=== PATIENT | female | born 1955 | race Hispanic/Latino ===

== ENCOUNTER 2017-07-06 09:48 | Outpatient (CLI) | payer MEDICAID ==
--- NOTE | 2017-07-06 10:36 | Mammography Report ---
BILATERAL DIGITAL DIAGNOSTIC MAMMOGRAM WITH CAD : 07/06/17 09:48:00 CLINICAL: Breast cancer survivor status post right partial mastectomy and status post benign right stereotactic biopsy 03/28/15. COMPARISON:07/03/16 FINDINGS: The breasts are heterogeneously dense, which may obscure small masses. Stable right postsurgical scar with surgical clips and benign calcifications. Right upper outer biopsy clip. No mass, architectural distortion or suspicious calcifications. The left breast is negative. IMPRESSION: No mammographic evidence of malignancy. BI-RADS CATEGORY: 2 -- Benign RECOMMENDATION: Routine mammographic screening in one year. COMMENT: Patient follow-up letters are generated via our [employer] application.
== END 2017-07-06 09:49 | disposition home or self-care (01) ==
LOC: SPVWC 09:48
PROVIDERS: ATTEND Family Medicine
DX: R92.8 Other abnormal and inconclusive findings on diagnostic imaging of breast (principal); Z90.11 Acquired absence of right breast and nipple
CPT/HCPCS: 77066

== ENCOUNTER 2018-07-07 09:49 | Outpatient (CLI) | payer MEDICAID ==
--- NOTE | 2018-07-07 13:04 | Mammography Report ---
BILATERAL DIGITAL SCREENING MAMMOGRAM WITH CAD: 07/07/18 09:49:00 CLINICAL: Routine screening.Breast cancer survivor status post right partial mastectomy and status post right benign stereotactic breast biopsy 03/28/15. COMPARISON:07/06/17 FINDINGS: The breasts are heterogeneously dense, which may obscure small masses. Stable right inner posterior postsurgical scar with calcifications and surgical clips. Scattered bilateral benign calcifications. No mass, suspicious architectural distortion or suspicious calcifications. IMPRESSION: No mammographic evidence of malignancy. BI-RADS CATEGORY: 2 -- Benign RECOMMENDATION: Routine mammographic screening in one year. COMMENT: Patient follow-up letters are generated via our [employer] application.
== END 2018-07-07 09:50 | disposition home or self-care (01) ==
LOC: SPVWC 09:49
PROVIDERS: ATTEND Family Medicine
DX: Z12.31 Encounter for screening mammogram for malignant neoplasm of breast (principal)
CPT/HCPCS: 77067

== ENCOUNTER 2019-07-13 08:56 | Outpatient (CLI) | payer MEDICAID ==
--- NOTE | 2019-07-13 11:04 | Mammography Report ---
DIGITAL SCREENING MAMMOGRAM WITH CAD, 07/13/2019 INDICATION: Routine screening mammography. Breast cancer survivor status post right partial mastectom y and status post right benign stereotactic biopsy. TECHNIQUE: Digital bilateral 2D mammography was obtained in the craniocaudal and mediolateral obliq ue projections. This examination was interpreted with the benefit of Computer-Aided Detection analysi s. COMPARISON: 07/07/2018 FINDINGS: Breast Density: The breasts are heterogeneously dense, which may obscure small masses. There is no evidence of dominant mass, suspicious calcifications or architectural distortion in eithe r breast. Bilateral benign calcifications. Large benign calcifications and surgical clips at the right inner posterior postsurgical scar. IMPRESSION: No mammographic evidence of malignancy. Follow up recommendation: Routine yearly BI-RADS Category 2: Benign. A "normal" or negative report should not discourage follow up or biopsy of a clinically significant f inding. A written summary of these findings will be mailed to the patient. The patient will be entered into a mammography reporting system which will generate a reminder letter for the patient's next appointmen t at the appropriate interval. The [employer] recommends yearly mammograms starting at age 40 and continuing as l dennis as a woman is in good health. Breast MRI is recommended for women with an approximate 20-25% or greater lifetime risk of breast cancer, including women with a strong family history of breast or ova julissa cancer or who have been treated for Hodgkin's disease. Signer Name: Trevor Arnold MD Signed: 07/13/2019 10:59 AM Workstation Name: [id number]
== END 2019-07-13 08:57 | disposition home or self-care (01) ==
LOC: SPVWC 08:56
PROVIDERS: ATTEND Family Medicine
DX: Z12.31 Encounter for screening mammogram for malignant neoplasm of breast (principal)
CPT/HCPCS: 77067

== ENCOUNTER 2020-12-26 11:10 | Outpatient (CLI) | payer MEDICARE ==
--- NOTE | 2020-12-26 16:30 | Mammography Report ---
DIGITAL SCREENING MAMMOGRAM WITH CAD, 12/26/2020 CLINICAL INFORMATION / INDICATION: Routine screening mammography. SCREENING MAMMO Z12.31 TECHNIQUE: Digital bilateral 2D mammography was obtained in the craniocaudal and mediolateral obliqu e projections. This examination was interpreted with the benefit of Computer-Aided Detection analysis . COMPARISON: 07/13/2019 FINDINGS: Breast Density: The breasts are heterogeneously dense, which may obscure small masses. No dominant mass, suspicious calcifications, or architectural distortion in either breast. Postbiopsy change right breast. IMPRESSION: No mammographic evidence of malignancy. Follow up recommendation: Routine yearly BI-RADS Category 2: Benign. A "normal" or negative report should not discourage follow up or biopsy of a clinically significant f inding. A written summary of these findings will be mailed to the patient. The patient will be entered into a mammography reporting system which will generate a reminder letter for the patient's next appointmen t at the appropriate interval. The [employer] recommends yearly mammograms starting at age 40 and continuing as l dennis as a woman is in good health. Breast MRI is recommended for women with an approximate 20-25% or greater lifetime risk of breast cancer, including women with a strong family history of breast or ova julissa cancer or who have been treated for Hodgkin's disease. Signer Name: Stas Gray MD Signed: 12/26/2020 4:25 PM Workstation Name: [id number]
== END 2020-12-26 11:11 | disposition home or self-care (01) ==
LOC: SPVWC 11:10
PROVIDERS: ATTEND Family Medicine
DX: Z12.31 Encounter for screening mammogram for malignant neoplasm of breast (principal)
CPT/HCPCS: 77067

== ENCOUNTER 2022-01-14 11:42 | Outpatient (CLI) | payer MEDICARE ==
--- NOTE | 2022-01-15 10:09 | Mammography Report ---
DIGITAL SCREENING MAMMOGRAM WITH CAD, 01/14/2022 CLINICAL INFORMATION / INDICATION: Routine screening mammography. SCREENING MAMMO TECHNIQUE: Digital bilateral 2D mammography was obtained in the craniocaudal and mediolateral obliqu e projections. This examination was interpreted with the benefit of Computer-Aided Detection analysis . COMPARISON: 12/26/2020 and 07/13/2019 FINDINGS: Breast Density: The breasts are heterogeneously dense, which may obscure small masses. No dominant mass, suspicious calcifications, or architectural distortion in either breast. Scar/postoperative change again seen on the right. IMPRESSION: No mammographic evidence of malignancy. Follow up recommendation: Routine yearly screening mammogram. BI-RADS Category 2: BENIGN. A "normal" or negative report should not discourage follow up or biopsy of a clinically significant f inding. A written summary of these findings will be mailed to the patient. The patient will be entered into a mammography reporting system which will generate a reminder letter for the patient's next appointmen t at the appropriate interval. The [employer] recommends yearly mammograms starting at age 40 and continuing as l dennis as a woman is in good health. Breast MRI is recommended for women with an approximate 20-25% or greater lifetime risk of breast cancer, including women with a strong family history of breast or ova julissa cancer or who have been treated for Hodgkin's disease. Signer Name: Boom Sebastian MD Signed: 01/15/2022 10:04 AM Workstation Name: [id number]
--- NOTE | 2022-01-20 09:59 | Mammography Report ---
DEXA BONE DENSITY SCAN INDICATION / CLINICAL INFORMATION: OSTEOPOROSIS SCREENING. 66 years Female COMPARISON: None available. LUMBAR SPINE (L1-L4): - Bone mineral density (BMD) = 1.163 g/cm2. - T-score = 1.1 - Z-score = 2.9 Change (%) since most recent prior (if available): None available. FEMORAL NECKS: - Neck mean Bone mineral density (BMD) = 0.650 g/cm2. - T-score = -1.8 - Z-score = -0.2 Change (%) since most recent prior (if available): None available. IMPRESSION: 1. WHO Classification: Osteopenia. Fracture Risk: Increased. 2. 10-Year Fracture Risk (FRAX) = Major Osteoporotic Not reported.% / Hip: Not reported.%. BMD Reporting Guidelines (ISCD, 2015) BMD Reporting in Postmenopausal Women and in Men Age 50 and Older * T-scores are preferred. * The WHO densitometric classification is applicable. BMD Reporting in Females Prior to Menopause and in Males Younger Than Age 50 * Z-scores, not T-scores, are preferred. This is particularly important in children. * A Z-score of -2.0 or lower is defined as below the expected range for age, and a Z-score above -2. 0 is within the expected range for age. * Osteoporosis cannot be diagnosed in men under age 50 on the basis of BMD alone. * The WHO diagnostic criteria may be applied to women in the menopausal transition. http://www.iscd.org/official-positions/6535-tibu-fslbteke-positions-adult/ Signer Name: Gonzalo Sequeira MD Signed: 01/20/2022 9:55 AM Workstation Name: [email or web address]
== END 2022-01-14 11:43 | disposition home or self-care (01) ==
LOC: SPVWC 11:42
PROVIDERS: ATTEND Family Medicine
DX: Z12.31 Encounter for screening mammogram for malignant neoplasm of breast (principal); M85.88 Other specified disorders of bone density and structure, other site
CPT/HCPCS: 77067; 77080